=== PATIENT | male | born 1975 | race American Indian/Alaskan Native ===

== ENCOUNTER 2016-12-23 17:01 | Emergency (ER) | payer BC ==
--- NOTE | 2016-12-23 17:35 | Emergency Department Report ---
Chief Complaint: Weakness Stated Complaint: LT FACIAL NUMBNESS Time Seen by Provider: 12/23/16 17:26 - HPI History of Present Illness: 41-year-old male presents with no other prior medical history with a left sinus x-rays sided facial numbness times this morning. Patient states since this morning he soaked his left side of the face of bit numb. Patient states he started to have left watery eyes. Patient denies headache/trauma/recent illness. - ROS Review of Systems: As noted in HPI - Exam Vital Signs: Vital Signs 12/23/16 17:10 Temperature 98.3 F Pulse Rate 81 Respiratory 18 Rate Blood Pressure 134/89 O2 Sat by Pulse 99 Oximetry Physical Exam: GENERAL: Alert and oriented x3, no apparent distress, Normal Gait, atraumatic. EYES: Extra ocular muscles are intact. Pupils are equal, round, and reactive to light and accommodation. Raised right eyebrow. Patient has sensation of the face. Patient able to raise his eyebrows bilaterally. MOUTH:Mouth is well hydrated and without lesions. Tonsils nonerythematous or swollen, Uvula midline, Tongue not elevated. NEUROLOGIC: The patient is cooperative with no focal neurologic deficits. Normal speech. Normal sensation in V1, V2, V3 bilaterally. Normal sensation in bilateral upper extremities, No loss of sensation, .No arm dripping. Bilateral arm pressure with the arm strength 5+ MSE screening note: Focused history and physical exam performed. Due to findings the following was ordered: ED Medical Decision Making - Medical Decision Making 41-year-old male who presents cranial Hernandez's palsy 2B evaluated by fast track provider. No neuroimaging necessary due to patient being neurologically intact Would need prednisone and artificial tears as home medications ED Disposition for MSE Condition: Stable
--- NOTE | 2016-12-23 20:59 | Cat Scan Report ---
FINAL REPORT EXAM: CT HEAD/BRAIN WO CON HISTORY: neuro deficits \T\lt; 6hrs or sx present upon awakening TECHNIQUE: Noncontrast serial axial images from skull base to vertex. PRIORS: None. FINDINGS: There is no mass effect or midline shift. There are no abnormal intra or extra-axial fluid collections. Cortical sulci and lateral ventricles are within normal limits for size and configuration. Basilar cisterns are patent. No acute intracranial hemorrhage is identified. Visualized paranasal sinuses and mastoid air cells are well aerated. No acute osseous abnormality is identified. IMPRESSION: 1. No abnormal mass or acute intracranial hemorrhage is identified. 2. Patient can be further assessed with MRI with diffusion-weighted imaging if indicated.
[2016-12-23 21:47] LABS: Basophils % (Auto) 0.8 % (0.0-1.8); Eosinophils % (Auto) 2.8 % (0.0-4.3); Hematocrit 42.1 % (35.5-45.6); Hemoglobin 14.3 gm/dl (11.8-15.2); Mean Corpuscular HGB Conc 34 % (32-34); Mean Corpuscular Hemoglobin 27 pg (28-32); Mean Corpuscular Volume 80 fl (84-94); Platelet Count 214 K/mm3 (140-440); Red Blood Count 5.25 M/mm3 (3.65-5.03); Red Cell Distribution Width 14.6 % (13.2-15.2); White Blood Count 7.4 K/mm3 (4.5-11.0)
[2016-12-23 21:56] LABS: INR 0.95 (0.87-1.13)
[2016-12-23 21:57] LABS: Partial Thromboplastin Time 31.4 Sec. (24.2-36.6)
[2016-12-23 22:03] LABS: Anion Gap 16 mmol/L; Blood Urea Nitrogen 9 mg/dL (9-20); Calcium 9.3 mg/dL (8.4-10.2); Carbon Dioxide 30 mmol/L (22-30); Chloride 98.6 mmol/L (98-107); Glucose 104 mg/dL (75-100); Potassium 4.4 mmol/L (3.6-5.0); Sodium 140 mmol/L (137-145)
[2016-12-24 02:47] VITALS: BP 133/82
--- NOTE | 2016-12-24 04:15 | Emergency Department Report ---
ED Neuro Deficit HPI - General Chief Complaint: Weakness Stated Complaint: LT FACIAL NUMBNESS Time Seen by Provider: 12/23/16 17:26 Source: patient Mode of arrival: Ambulatory Limitations: No Limitations - History of Present Illness Initial Comments: 41-year-old male with no past medical history presents to the hospital complaining of waking up with left sided facial droop at 6:45 AM. Mild numbness reported. Patient denies any pain or recent trauma. No aggravating or alleviating factors reported. Symptoms are constant. Weakness includes upper and lower face. - Related Data Home Medications: Previous Rx's Medication Instructions Recorded Last Taken Type Mineral Oil/Petrolatum,White 1 applic OS PRN PRN #1 bottle 12/24/16 Unknown Rx [Refresh Lacri-Lube Ointment] Valacyclovir HCl [Valtrex] 1,000 mg PO TID #21 tablet 12/24/16 Unknown Rx predniSONE [Deltasone] 1 dose PO BID 10 Days 12/24/16 Unknown Rx Allergies/Adverse Reactions: Allergies Allergy/AdvReac Type Severity Reaction Status Date / Time No Known Allergies Allergy Unverified 12/23/16 17:16 ED Review of Systems ROS: Stated complaint: LT FACIAL NUMBNESS Other details as noted in HPI Comment: All other systems reviewed and negative Other: Constitutional: No fevers chills or weight loss Eyes: No eye pain visual changes or discharge ENT: No ear pain or throat pain Neck: Denies pain Respiratory: Denies cough wheezing shortness of breath Cardiovascular: Denies chest pain, palpitations, syncope GI: Denies abdominal pain, nausea, vomiting, diarrhea : Denies dysuria, urinary frequency, or urgency Musculoskeletal: Denies back pain, joint swelling Skin: Denies rash, lesions, erythema Neurologic: Denies headache Psychiatric: Denies suicidal ideation, hallucinations ED Past Medical Hx - Past Medical History Previous Medical History?: No - Surgical History Past Surgical History?: No - Social History Smoking Status: Never Smoker Substance Use Type: None - Medications Home Medications: Home Medications Medication Instructions Recorded Confirmed Last Taken Type Mineral Oil/Petrolatum,White 1 applic OS PRN PRN #1 bottle 12/24/16 Unknown Rx [Refresh Lacri-Lube Ointment] Valacyclovir HCl [Valtrex] 1,000 mg PO TID #21 tablet 12/24/16 Unknown Rx predniSONE [Deltasone] 1 dose PO BID 10 Days 12/24/16 Unknown Rx ED Neuro Physical Exam - General Limitations: No Limitations Suspected Stroke: No - Neurological Exam Neurological exam: Present: alert - NIHSS Assessment Interval: Baseline 1a. Level of Consciousness: alert 1b. LOC Questions: answers correctly 1c. LOC Commands: performs tasks correctly 2. Best Gaze: normal 3. Visual: no visual loss 4. Facial Palsy: partial paralysis 5b. Motor Arm Right: no drift 5a. Motor Arm Left: no drift 6a. Motor Leg Left: no drift 6b. Motor Leg Right: no drift 7. Limb Ataxia: absent 8. Sensory: normal 9. Best Language: no aphasia 10. Dysarthria: normal 11. Extinction/Inattention: no abnormality Total Score: 2 Stroke Severity: Minor Stroke - Other Other exam information: General: No limitations, patient is alert in no acute distress Head exam: Atraumatic, normocephalic Eyes exam: Normal appearance, pupils equal reactive to light, extraocular movements intact, visual field defects grossly intact ENT: Moist mucous membrane, normal oropharynx Neck exam: Normal inspection, full range of motion, no meningismus nontender Respiratory exam: Clear to auscultation bilateral, no wheezes, rales, crackles Cardiovascular: Normal rate and rhythm, normal heart sounds Abdomen: Soft, nondistended, and nontender, with normal bowel sounds, no rebound, or guarding Extremity: Full range of motion normal inspection no deformity Back: Normal Inspection, full range of motion, no tenderness Neurologic: Alert, oriented x3, paralysis of the left upper and lower face, [id number] function intact, 5/5 upper and lower extremity strength, sensation intact. Psychiatric: normal affect, normal mood Skin: Warm, dry, intact ED Course Vital Signs 12/23/16 12/24/16 17:10 02:43 Temperature 98.3 F 98.6 F Pulse Rate 81 62 Respiratory 18 18 Rate Blood Pressure 134/89 133/82 O2 Sat by Pulse 99 100 Oximetry - Lab Data Result diagrams: 12/23/16 21:17 12/23/16 21:17 Lab Results 12/23/16 12/23/16 12/23/16 Range/Units 18:05 21:17 21:17 WBC 7.4 (4.5-11.0) K/mm3 RBC 5.25 H (3.65-5.03) M/mm3 Hgb 14.3 (11.8-15.2) gm/dl Hct 42.1 (35.5-45.6) % MCV 80 L (84-94) fl MCH 27 L (28-32) pg MCHC 34 (32-34) % RDW 14.6 (13.2-15.2) % Plt Count 214 (140-440) K/mm3 Lymph % (Auto) 44.4 H (13.4-35.0) % [place] % (Auto) 8.7 H (0.0-7.3) % Eos % (Auto) 2.8 (0.0-4.3) % Baso % (Auto) 0.8 (0.0-1.8) % Lymph # 3.3 (1.2-5.4) K/mm3 [place] # 0.6 (0.0-0.8) K/mm3 Eos # 0.2 (0.0-0.4) K/mm3 Baso # 0.1 (0.0-0.1) K/mm3 Seg Neutrophils % 43.3 (40.0-70.0) % Seg Neutrophils # 3.2 (1.8-7.7) K/mm3 PT 13.1 (12.2-14.9) Sec. INR 0.95 (0.87-1.13) APTT 31.4 (24.2-36.6) Sec. Thrombin Time (15.1-19.6) Sec. Sodium (137-145) mmol/L Potassium (3.6-5.0) mmol/L Chloride (98-107) mmol/L Carbon Dioxide (22-30) mmol/L Anion Gap mmol/L BUN (9-20) mg/dL Creatinine (0.8-1.5) mg/dL Estimated GFR ml/min BUN/Creatinine Ratio % Glucose 102 H (75-100) mg/dL Calcium (8.4-10.2) mg/dL Troponin T (0.00-0.029) ng/mL 12/23/16 12/23/16 Range/Units 21:17 21:17 WBC (4.5-11.0) K/mm3 RBC (3.65-5.03) M/mm3 Hgb (11.8-15.2) gm/dl Hct (35.5-45.6) % MCV (84-94) fl MCH (28-32) pg MCHC (32-34) % RDW (13.2-15.2) % Plt Count (140-440) K/mm3 Lymph % (Auto) (13.4-35.0) % [place] % (Auto) (0.0-7.3) % Eos % (Auto) (0.0-4.3) % Baso % (Auto) (0.0-1.8) % Lymph # (1.2-5.4) K/mm3 [place] # (0.0-0.8) K/mm3 Eos # (0.0-0.4) K/mm3 Baso # (0.0-0.1) K/mm3 Seg Neutrophils % (40.0-70.0) % Seg Neutrophils # (1.8-7.7) K/mm3 PT (12.2-14.9) Sec. INR (0.87-1.13) APTT (24.2-36.6) Sec. Thrombin Time 16.3 (15.1-19.6) Sec. Sodium 140 (137-145) mmol/L Potassium 4.4 (3.6-5.0) mmol/L Chloride 98.6 (98-107) mmol/L Carbon Dioxide 30 (22-30) mmol/L Anion Gap 16 mmol/L BUN 9 (9-20) mg/dL Creatinine 0.9 (0.8-1.5) mg/dL Estimated GFR > 60 ml/min BUN/Creatinine Ratio 10.00 % Glucose 104 H (75-100) mg/dL Calcium 9.3 (8.4-10.2) mg/dL Troponin T < 0.010 (0.00-0.029) ng/mL - Radiology Data Radiology results: report reviewed (CT head: No acute findings.) - Medical Decision Making Patient has upper and lower face weakness without any other neurologic deficit and normal CT. Diagnosis is Hernandez's palsy. Patient treated currently treated accordingly and neurology follow-up will be encouraged. - Differential Diagnosis CVA, TIA, Hernandez's palsy Critical Care Time: No Critical care attestation.: If time is entered above; I have spent that time in minutes in the direct care of this critically ill patient, excluding procedure time. ED Disposition Clinical Impression: Hernandez's palsy Disposition: DC-01 TO HOME OR SELFCARE Is pt being admited?: No Does the pt Need Aspirin: No Condition: Stable Instructions: Hernandez Palsy (ED) Additional Instructions: Take the medication as prescribed. Follow-up with the neurologist provided. Return if symptoms worsen. Purchase an eye patch to protect your eye while sleeping. Prescriptions: Mineral Oil/Petrolatum,White [Refresh Lacri-Lube Ointment] 1 applic OS PRN PRN # 1 bottle PRN Reason: Dry Eye(S) predniSONE [Deltasone] 1 dose PO BID 10 Days Valacyclovir HCl [Valtrex] 1,000 mg PO TID #21 tablet Referrals: YANNI PATEL MD [Staff Physician] - 3-5 Days (Neurologist) SVITLANA CABELLO MD [Staff Physician] - 3-5 Days (Neurologist) Time of Disposition: 04:26
== END 2016-12-24 05:11 | disposition home or self-care (01) ==
LOC: ED 17:01
DX: G51.0 Bell's palsy (principal)
CPT/HCPCS: 36415; 70450; 80048; 82947; 84484; 85025; 85610; 85670; 85730; 93005; 93010